=== PATIENT | female | born 1940 | race Caucasian/White ===

== ENCOUNTER 2017-06-29 14:15 | Inpatient (IN) | payer MEDICARE, MEDICAID ==
[2017-06-29 14:50] LABS: % BASOPHILS 0.6 % (0.0-2.0); % EOSINOPHILS 5.3 % (0.0-5.0); % LYMPHOCYTES 28.2 % (20.0-50.0); % MONOCYTES 10.4 % (2.0-10.0); % NEUTROPHILS 55.5 % (40.0-80.0); EOSINOPHILE ABSOLUTE 0.3 Th/cmm (0.1-0.4); HEMATOCRIT 35.2 % (41.0-60); HEMOGLOBIN 11.7 gm/dL (12-16); LYMPHOCYTE ABSOLUTE 1.6 Th/cmm (1.5-3.0); MEAN CELL VOLUME 92.7 fl (81-100); MEAN CORPUSCULAR HEMOGLOBIN 30.8 pg (27.0-31.0); MEAN CORPUSCULAR HGB CONC 33.2 pg (28.0-36.0); MEAN PLATELET VOLUME 8.1 fl; MONOCYTE ABSOLUTE 0.6 Th/cmm (0.3-1.0); NEUTROPHILE ABSOLUTE 3.1 Th/cmm (1.8-8.0); PLATELET COUNT 178 Th/cmm (150-400); RED CELL DISTRIBUTION WIDTH 14.7 % (11.5-20.0); WHITE BLOOD COUNT 5.6 Th/cmm (4.8-10.8)
[2017-06-29 15:06] LABS: ALB/GLOB RATIO 0.7 (1.0-1.8); ALBUMIN 3.2 gm/dL (3.7-5.3); ALKALINE PHOSPHATASE 202 U/L (34-104); ANION GAP 9.9 (7.0-16.0); BILIRUBIN,TOTAL 0.5 mg/dL (0.3-1.0); BUN - UREA NITROGEN 23 mg/dL (7-25); CALCIUM SERUM 9.1 mg/dL (8.6-10.3); CHLORIDE 101 mEq/L (98-107); CHOLESTEROL 140 mg/dL (<200); CREATININE - SERUM 1.1 mg/dL (0.6-1.2); GLUCOSE 171 mg/dL (70-105); HDL -HIGH DENSITY LIPOPROTEIN 39 mg/dL (23-92); MAGNESIUM 2.2 mg/dL (1.9-2.7); PHOSPHOROUS 4.1 mg/dL (2.5-5.0); POTASSIUM SERUM 3.9 mEq/L (3.5-5.1); SGOT 54 U/L (13-39); SGPT/ALT 30 U/L (7-52); SODIUM SERUM 135 mEq/L (136-145); TOTAL PROTEIN,SERUM 7.9 gm/dL (6.0-8.3); TRIGLYCERIDES 185 mg/dL (<150)
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
[2017-06-29] MEDS ORDERED: Maalox 30 mL Cup PO PRN ×2 (19:38→19:52)
[2017-06-29] MEDS ORDERED: Ipratropium Neb 0.5 mg/2.5 mL UD HHN PRN (19:52)
[2017-06-29] MEDS ORDERED: Budesonide 0.5 Mg/2 mL Ud HHN PRN (19:52)
[2017-06-29] MEDS ORDERED: GLUCAGON HCl 1 MG KIT IM PRN (20:30)
[2017-06-29] MEDS: Ferrous Sulfate 325 MG TAB PO SCH (22:00)
[2017-06-29 23:24] VITALS: BP 155/72
[2017-06-30] MEDS: Lactulose 10 Gm/15 mL 30mL UDC PO SCH ×5 (00:30→17:06)
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
[2017-06-30] MEDS: INSULIN ASPART SLIDING SCALE 100 UNITS/ML UNIT SUBQ SCH ×2 (06:47→16:33)
--- NOTE | 2017-06-30 07:44 | Diagnostic Imaging Report ---
CHEST X-RAY: AP view INDICATION: Pneumonia COMPARISON: 12/20/2015 FINDINGS: Low lung lungs are seen with bibasal atelectatic changes. No focal consolidation or effusions. Cardiomegaly is noted with atherosclerosis. Degenerative changes of the spine and shoulders are noted. IMPRESSION: Low lung volumes and bibasal atelectatic changes. No focal consolidation identified. Cardiomegaly and atherosclerotic vascular disease.
[2017-06-30] MEDS ORDERED: Non-Formulary Item 1 EA (Potassium Chloride [Potassium Chloride] 1 CAP) PO SCH (09:00)
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
[2017-06-30] MEDS: Ferrous Sulfate 325 MG TAB PO SCH ×3 (10:00→21:36)
[2017-06-30] MEDS: Multivitamin Tab PO SCH (10:00)
[2017-06-30] MEDS: Potassium Chloride 10 mEq ER Tab PO SCH (10:00)
[2017-06-30] MEDS: Pantoprazole 40 mg EC Tab PO SCH (10:00)
--- NOTE | 2017-06-30 16:21 | Transfer Summary ---
DATE OF TRANSFER: 06/29/2017 ADDENDUM The patient, who is here for medical clearance. The patient will be going to the psych floor. The patient was examined, the patient was medically clear from examination point of view. The patient has a lab workup done. White count was 5.6, hemoglobin 11.7, hematocrit 35.2, platelet count was 178,000. Neutrophils is 55.5, lymphocytes 28.2, monocytes 10.4, eosinophil 5.3. Electrolytes: Sodium 135, potassium 3.9, chloride 101, carbon dioxide 28, BUN is 23, creatinine is 1.1. Glucose is 171, it is a random glucose. Magnesium is 2.2, phosphorus 4.1, AST is 54, ALT is 30, alkaline phosphatase is 202. Beta natriuretic peptide, BNP is 171. No signs of heart failure. Total protein is 7.9, albumin 3.2, globulin of 4.7. HDL is 39. All the lab workup are normal. The patient is medically cleared to go to the psychiatric floor. JOB# [id number]
--- NOTE | 2017-07-01 04:48 | Progress Notes ---
DATE: 06/30/2017 SUBJECTIVE: Staff was spoken to. The patient is interviewed. Mood is noted to be irritable. Affect is constricted. The patient is isolative and withdrawn. Insight and judgment at this time are noted to be still impaired. Impulse control is noted to be limited. No side effects to the medications are noted. Participation in the groups are noted to be very minimal. The patient gets easily irritable and angry mainly towards the end of the day. ASSESSMENT: The patient is still cognitively impaired and getting agitated. PLAN: To continue the patient with supportive therapy, and encouraged the patient to verbalize the concerns rather than to act out. JOB# [id number]
[2017-07-01] MEDS: Lactulose 10 Gm/15 mL 30mL UDC PO SCH ×3 (06:44→17:37)
[2017-07-01] MEDS: INSULIN ASPART SLIDING SCALE 100 UNITS/ML UNIT SUBQ SCH ×2 (06:45→16:57)
[2017-07-01] MEDS: Ferrous Sulfate 325 MG TAB PO SCH ×3 (08:43→20:58)
[2017-07-01] MEDS: Pantoprazole 40 mg EC Tab PO SCH (08:45)
[2017-07-01] MEDS: Multivitamin Tab PO SCH (08:45)
[2017-07-01] MEDS: Potassium Chloride 10 mEq ER Tab PO SCH (08:46)
--- NOTE | 2017-07-01 09:33 | General Progress Note ---
Subjective - Review of Systems Service Date: 07/01/17 Subjective: I want go home Objective - Results Result Diagrams: 06/29/17 14:40 06/29/17 14:40 Recent Labs: Laboratory Last Values WBC 5.6 Th/cmm (4.8-10.8) 06/29/17 14:40 RBC 3.80 Mil/cmm (3.80-5.20) 06/29/17 14:40 Hgb 11.7 gm/dL (12-16) L 06/29/17 14:40 Hct 35.2 % (41.0-60) L 06/29/17 14:40 MCV 92.7 fl (81-100) 06/29/17 14:40 MCH 30.8 pg (27.0-31.0) 06/29/17 14:40 MCHC Differential 33.2 pg (28.0-36.0) 06/29/17 14:40 RDW 14.7 % (11.5-20.0) 06/29/17 14:40 Plt Count 178 Th/cmm (150-400) 06/29/17 14:40 MPV 8.1 fl 06/29/17 14:40 Neutrophils % 55.5 % (40.0-80.0) 06/29/17 14:40 Lymphocytes % 28.2 % (20.0-50.0) 06/29/17 14:40 Monocytes % 10.4 % (2.0-10.0) H 06/29/17 14:40 Eosinophils % 5.3 % (0.0-5.0) H 06/29/17 14:40 Basophils % 0.6 % (0.0-2.0) 06/29/17 14:40 Sodium 135 mEq/L (136-145) L 06/29/17 14:40 Potassium 3.9 mEq/L (3.5-5.1) 06/29/17 14:40 Chloride 101 mEq/L (98-107) 06/29/17 14:40 Carbon Dioxide 28.0 mEq/L (21.0-31.0) 06/29/17 14:40 Anion Gap 9.9 (7.0-16.0) 06/29/17 14:40 BUN 23 mg/dL (7-25) 06/29/17 14:40 Creatinine 1.1 mg/dL (0.6-1.2) 06/29/17 14:40 Est GFR ( Amer) TNP 06/29/17 14:40 Est GFR (Non-Af Amer) TNP 06/29/17 14:40 BUN/Creatinine Ratio 20.9 06/29/17 14:40 Glucose 171 mg/dL (70-105) H 06/29/17 14:40 Calcium 9.1 mg/dL (8.6-10.3) 06/29/17 14:40 Phosphorus 4.1 mg/dL (2.5-5.0) 06/29/17 14:40 Magnesium 2.2 mg/dL (1.9-2.7) 06/29/17 14:40 Total Bilirubin 0.5 mg/dL (0.3-1.0) 06/29/17 14:40 AST 54 U/L (13-39) H 06/29/17 14:40 ALT 30 U/L (7-52) 06/29/17 14:40 Alkaline Phosphatase 202 U/L (34-104) H 06/29/17 14:40 Troponin I 0.02 ng/mL (0.01-0.05) 06/29/17 14:40 B-Natriuretic Peptide 171.0 pg/mL (5.0-100.0) H 06/29/17 14:40 Total Protein 7.9 gm/dL (6.0-8.3) 06/29/17 14:40 Albumin 3.2 gm/dL (3.7-5.3) L 06/29/17 14:40 Globulin 4.7 gm/dL 06/29/17 14:40 Albumin/Globulin Ratio 0.7 (1.0-1.8) L 06/29/17 14:40 Triglycerides 185 mg/dL (<150) H 06/29/17 14:40 Cholesterol 140 mg/dL (<200) 06/29/17 14:40 LDL Cholesterol Direct 79 mg/dL (75-193) 06/29/17 14:40 HDL Cholesterol 39 mg/dL (23-92) 06/29/17 14:40 - Physical Exam Vitals and I&O: Vital Signs Temp 98.6 F 06/30/17 20:00 Pulse 75 07/01/17 08:45 Resp 18 07/01/17 07:15 BP 150/68 07/01/17 08:45 Pulse Ox 95 07/01/17 07:15 Intake & Output 06/30/17 07/01/17 07/01/17 18:59 06:59 18:59 Intake Total 420 Balance 420 Intake: Oral 420 Other: # Voids 1 Active Medications: Current Medications Acetaminophen (Tylenol) 650 mg PO Q4HR PRN PRN Reason: FEVER >101; MILD PAIN Stop: 08/28/17 19:51 Al Hydrox/Mg Hydrox/Simethicone (Maalox) 30 ml PO Q4HR PRN PRN Reason: GI DISTRESS Stop: 08/28/17 19:51 Ascorbic Acid (Vitamin C) 500 mg PO DAILY MARINO Stop: 08/29/17 08:59 Last Admin: 07/01/17 08:42 Dose: 500 mg Aspirin (Ecotrin) 81 mg PO DAILY MARINO Stop: 08/29/17 08:59 Last Admin: 07/01/17 08:43 Dose: 81 mg Budesonide (Pulmicort) 0.5 mg HHN BID PRN PRN Reason: Wheezing Stop: 08/28/17 19:51 Donepezil HCl (Aricept) 5 mg PO HS MARINO Stop: 08/28/17 20:59 Last Admin: 06/30/17 21:35 Dose: 5 mg Ferrous Sulfate (Iron) 325 mg PO TID MARINO Stop: 08/28/17 20:59 Last Admin: 07/01/17 08:43 Dose: 325 mg Furosemide (Lasix) 40 mg PO BID MARINO Stop: 08/29/17 08:59 Last Admin: 07/01/17 08:43 Dose: 40 mg Glipizide (Glucotrol) 5 mg PO DAILY MARINO Stop: 08/29/17 08:59 Last Admin: 07/01/17 08:44 Dose: 5 mg Glucagon (Glucagen) 1 mg IM PRN PRN PRN Reason: BLOOD SUGAR < 60 Insulin Aspart (Novolog Insulin Sliding Scale) 0 units SUBQ BIDAC MARINO PRN Reason: Protocol Stop: 08/29/17 07:29 Last Admin: 07/01/17 06:45 Dose: Not Given Ipratropium Freeman (Atrovent Neb 0.5mg/2.5ml) 0.5 mg HHN BID PRN PRN Reason: congestion Stop: 08/28/17 19:51 Lactulose (Cephulac) 20 gm PO Q6HR MARINO Stop: 08/29/17 00:00 Last Admin: 07/01/17 06:44 Dose: Not Given Lorazepam (Ativan) 0.5 mg PO Q4HR PRN; Protocol PRN Reason: Anxiety Stop: 07/29/17 19:37 Metoprolol Tartrate (Lopressor) 25 mg PO TID MARINO Stop: 08/28/17 20:59 Last Admin: 07/01/17 08:45 Dose: 25 mg Multivitamins/Vitamin C (Theragran) 1 tab PO DAILY MARINO Stop: 08/29/17 08:59 Last Admin: 07/01/17 08:45 Dose: 1 tab Nitroglycerin (Nitrostat) 0.4 mg SL Q5MIN PRN PRN Reason: Chest Pain Stop: 08/28/17 19:51 Pantoprazole Sodium (Protonix) 40 mg PO DAILY MARION Stop: 08/29/17 08:59 Last Admin: 07/01/17 08:45 Dose: 40 mg Potassium Chloride (Klor-Con) 10 meq PO DAILY MARINO Stop: 08/29/17 08:59 Last Admin: 07/01/17 08:46 Dose: 10 meq Quetiapine Fumarate (Seroquel) 25 mg PO BID MARINO PRN Reason: Protocol Stop: 08/29/17 08:59 Last Admin: 07/01/17 08:46 Dose: 25 mg Quetiapine Fumarate (Seroquel) 100 mg PO HS MARINO PRN Reason: Protocol Stop: 08/28/17 20:59 Last Admin: 06/30/17 21:36 Dose: 100 mg Tramadol HCl (Ultram) 50 mg PO Q4H PRN PRN Reason: Pain (Moderate) Stop: 08/28/17 19:51 Zolpidem Tartrate (Ambien) 5 mg PO HS PRN PRN Reason: Insomnia Stop: 08/28/17 19:37 General: Alert, Other (Confused) HEENT: Atraumatic Neck: Supple Cardiovascular: Regular rate Lungs: Clear to auscultation Abdomen: Bowel sounds, Soft Extremities: Other (No edema) Neurological: Other (Non ambulatory) Skin: Other (Warm and dry) Psych/Mental Status: Other (Confused, not oriented) Assessment/Plan - Assessment Assessment: Patient is awake, alert, not oriented. Dx: Increased in agitation, CHF, CAD, DM , HTN, Cirrhosis, COPD, Schizophrenia. - Plan Plan: Patient under Psychiatric care, continue with SNF meds. Ammonia level is requested. Will continue to monitor. Nutritional Asmnt/Malnutr-PDOC - Dietary Evaluation Malnutrition Findings (Please click <Entered> for more info): Nutritional Asmnt/Malnutrition Start: 06/30/17 14: 14 Text: Status: Complete Freq: Document 06/30/17 14:14 [email or web address] (Rec: 06/30/17 14:26 HEN [email or web address]) Nutritional Asmnt/Malnutrition Patient General Information Nutritional Screening High Risk Diagnosis dementia Pertinent Medical Hx/Surgical Hx CAD, CHF, HTN, COPD, dementia, psychosis, schizophrenia, weakness, DM, psoriasis Subjective Information Consult received for Chavo score 12. Pt seen sitting up in bed at time of visit, lunch tray on table. Pt is Armenian speaking. Per INSURANCE SPECIAL AGENT, pt does not like the food at lunch. Pt ate well at breakfast this morning. Pt is confused, not appropriate for nutrition education at this time. Current Diet Order/ Nutrition Support CCHO YAHAIRA Pertinent Medications vit C, Iron, lasix, glucotrol, novolog, cephulac, theragran, protonix, kcl, serqoeul Pertinent Labs 06/29 na 135, glucose 171 Nutritional Hx/Data Height 1.65 m Height (Calculated Centimeters) 165.1 Current Weight (lbs) 89.811 kg Weight (Calculated Kilograms) 89.8 Weight (Calculated Grams) 71986.3 [place] Body Weight 125 % [place] Body Weight 158 Body Mass Index (BMI) 32.9 Weight Status Approriate GI Symptoms GI Symptoms None Last BM not indicate Difficult in: None Skin Integrity/Comment: Chavo 12 Scar tissue with dark discoloration to right distal anterior gregorio, chronic wound with dry black scab to right distal lateral lower extremity per wound care note Estimated Nutritional Goals BEE in Kcals: Adj wt of IBW Calories/Kcals/Kg 25-30 Kcals Calculated 7906-6018 Protein: Adj wt of IBW Protein g/k-1.2 Protein Calculated 65-78 Fluid: ml 1625-1950ml (1ml/kcal) Nutritional Problem 1. Problem Problem altered nutrition related labs Etiology Hx of DM Signs/Symptoms: glucose 171 Malnutrition Alert Protein-Calorie Malnutrition N/A Is there a minimum of two criteria No selected? Query Text:Check all the applicable criteria. A minimum of two criteria are recommended for diagnosis of either severe or non-severe malnutrition. Intervention/Recommendation Comments 1. Continue with YAHAIRA CCHO diet as ordered. 2. Monitor PO intake, wt, labs and skin integrity 3. F/U as moderate risk in 3-5 days, 07/03-07/05, PO check Expected Outcomes/Goals Expected Outcomes/Goals 1. PO intake to meet at least 75% of nutritional needs. 2. Wt stability, skin to remain intact, labs to approach WNL.
[2017-07-01] MEDS ORDERED: Haloperidol Lactate 5 mg/mL 1mL Vial ONE (15:42)
[2017-07-01] MEDS ORDERED: Haloperidol Lactate 5 mg/mL 1mL Vial IM ONE (15:44)
--- NOTE | 2017-07-01 19:10 | Consultation ---
DATE OF CONSULTATION: 06/30/2017 REFERRING PHYSICIAN: Ted Zavala MD. TYPE OF CONSULTATION: Psychology. HISTORY OF PRESENT ILLNESS: The patient is a 76-year-old female. The patient is a resident of [facility]. The patient has been seen by this tag writer in previous hospitalizations here. The following is by record review and by patient's self report. The patient is admitted due to increased agitation and psychosis. According to record review staff at the patient's facility report that she had become easily agitated as well as episodes of screaming and striking out at staff members during caregiving. The patient was unable to be contained and admitted for stabilization. The patient denied any suicidal ideation, plan or intention. During the clinical interview, the patient is guarded and suspicious. PAST MEDICAL HISTORY: Please see history and physical by Dr. Gage. PAST PSYCHIATRIC HISTORY: The patient has multiple previous hospitalizations here on the geropsychiatric unit. The patient is under the care of both a psychiatrist and psychologist at her senior living facility. 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 SUBSTANCE ABUSE HISTORY: None. PSYCHOSOCIAL HISTORY: The patient did not answer questions about occupational history or educational history or jewish affiliation. The patient did not answer questions about physical or sexual abuse history or about any legal issues at the time of this interview. MENTAL STATUS EXAMINATION: The patient appears to be stated age. The patient's attitude is guarded. Eye contact is poor. Mood is irritable and angry. Affect is constricted. Thought process is confused. The patient denied any auditory or visual hallucinations. The patient is exhibiting paranoid ideation and delusion. The patient's behavior is irritable and angry and difficult to redirect. Impulse control is inadequate. Concentration is poor. The patient was unable to sustain focus and attention on the clinical interview questions. Sensorium is alert and oriented to place and self only. Patient did not participate in the memory assessment. The patient has no insight into her illness. The patient did not participate in the interpretation of proverbs. Insight is impaired. Judgment is impaired. DIAGNOSTIC IMPRESSION: AXIS I: 1. Psychotic disorder, not otherwise specified. 2. Dementia with behavioral disturbance. AXIS II: Deferred. AXIS III: Please see history and physical by Dr. Gage. TREATMENT PLAN: The patient has been seen by Dr. Guntupalli for psychiatric evaluation and for the management of the patient's psychotropic medications. We will provide supportive psychotherapy to include a simple de-escalation skill as well as limit setting with respect to the patient's striking out behavior at staff. We will provide reality orientation, reality differentiation and reality integration. We will provide motivational enhancement for the patient to verbalize her concerns versus acting out. We will provide motivational enhancement also for the patient to become compliant and stay compliant with all aspects of her care and treatment plan. We will provide coping strategies for phase of life issues as well. Thank you, Dr. Zavala, for this consult and the opportunity to participate with you in this patient's care. JOB# [id number] GISELL
--- NOTE | 2017-07-02 02:55 | Progress Notes ---
DATE: 07/01/2017 SUBJECTIVE: Staff was spoken to. The patient is interviewed. Mood is noted to be irritable. Affect is constricted. Insight and judgment at this time are noted still impaired. Impulse control seems to be poor. Coping skills are noted to be very poor. The patient has been very irritable and angry. The patient has to be given a dose of Haldol this morning. The patient is currently on 25 mg of the Seroquel twice a day and 100 mg at bedtime. The patient has been able to tolerate the medications. No side effects to medications are noted. ASSESSMENT: The patient is still psychotic. PLAN: To continue the patient with the supportive therapy and I encouraged the patient to verbalize the concerns rather than to act out. JOB# [id number]
[2017-07-02] MEDS: Lactulose 10 Gm/15 mL 30mL UDC PO SCH ×6 (06:35→23:43)
[2017-07-02] MEDS: INSULIN ASPART SLIDING SCALE 100 UNITS/ML UNIT SUBQ SCH ×2 (06:35→17:17)
[2017-07-02] MEDS: Potassium Chloride 10 mEq ER Tab PO SCH (09:16)
[2017-07-02] MEDS: Ferrous Sulfate 325 MG TAB PO SCH ×3 (09:18→20:52)
--- NOTE | 2017-07-02 09:53 | General Progress Note ---
Subjective - Review of Systems Service Date: 07/02/17 Subjective: I want go home Objective - Results Result Diagrams: 06/29/17 14:40 06/29/17 14:40 Recent Labs: Laboratory Last Values WBC 5.6 Th/cmm (4.8-10.8) 06/29/17 14:40 RBC 3.80 Mil/cmm (3.80-5.20) 06/29/17 14:40 Hgb 11.7 gm/dL (12-16) L 06/29/17 14:40 Hct 35.2 % (41.0-60) L 06/29/17 14:40 MCV 92.7 fl (81-100) 06/29/17 14:40 MCH 30.8 pg (27.0-31.0) 06/29/17 14:40 MCHC Differential 33.2 pg (28.0-36.0) 06/29/17 14:40 RDW 14.7 % (11.5-20.0) 06/29/17 14:40 Plt Count 178 Th/cmm (150-400) 06/29/17 14:40 MPV 8.1 fl 06/29/17 14:40 Neutrophils % 55.5 % (40.0-80.0) 06/29/17 14:40 Lymphocytes % 28.2 % (20.0-50.0) 06/29/17 14:40 Monocytes % 10.4 % (2.0-10.0) H 06/29/17 14:40 Eosinophils % 5.3 % (0.0-5.0) H 06/29/17 14:40 Basophils % 0.6 % (0.0-2.0) 06/29/17 14:40 Sodium 135 mEq/L (136-145) L 06/29/17 14:40 Potassium 3.9 mEq/L (3.5-5.1) 06/29/17 14:40 Chloride 101 mEq/L (98-107) 06/29/17 14:40 Carbon Dioxide 28.0 mEq/L (21.0-31.0) 06/29/17 14:40 Anion Gap 9.9 (7.0-16.0) 06/29/17 14:40 BUN 23 mg/dL (7-25) 06/29/17 14:40 Creatinine 1.1 mg/dL (0.6-1.2) 06/29/17 14:40 Est GFR ( Amer) TNP 06/29/17 14:40 Est GFR (Non-Af Amer) TNP 06/29/17 14:40 BUN/Creatinine Ratio 20.9 06/29/17 14:40 Glucose 171 mg/dL (70-105) H 06/29/17 14:40 Calcium 9.1 mg/dL (8.6-10.3) 06/29/17 14:40 Phosphorus 4.1 mg/dL (2.5-5.0) 06/29/17 14:40 Magnesium 2.2 mg/dL (1.9-2.7) 06/29/17 14:40 Total Bilirubin 0.5 mg/dL (0.3-1.0) 06/29/17 14:40 AST 54 U/L (13-39) H 06/29/17 14:40 ALT 30 U/L (7-52) 06/29/17 14:40 Alkaline Phosphatase 202 U/L (34-104) H 06/29/17 14:40 Troponin I 0.02 ng/mL (0.01-0.05) 06/29/17 14:40 B-Natriuretic Peptide 171.0 pg/mL (5.0-100.0) H 06/29/17 14:40 Total Protein 7.9 gm/dL (6.0-8.3) 06/29/17 14:40 Albumin 3.2 gm/dL (3.7-5.3) L 06/29/17 14:40 Globulin 4.7 gm/dL 06/29/17 14:40 Albumin/Globulin Ratio 0.7 (1.0-1.8) L 06/29/17 14:40 Triglycerides 185 mg/dL (<150) H 06/29/17 14:40 Cholesterol 140 mg/dL (<200) 06/29/17 14:40 LDL Cholesterol Direct 79 mg/dL (75-193) 06/29/17 14:40 HDL Cholesterol 39 mg/dL (23-92) 06/29/17 14:40 - Physical Exam Vitals and I&O: Vital Signs Temp 97.9 F 07/02/17 05:12 Pulse 71 07/02/17 09:18 Resp 18 07/02/17 07:25 BP 123/82 07/02/17 09:19 Pulse Ox 94 07/02/17 07:25 Intake & Output 07/01/17 07/02/17 07/02/17 18:59 06:59 18:59 Intake Total 480 Balance 480 Intake: Oral 480 Other: # Voids 2 Active Medications: Current Medications Acetaminophen (Tylenol) 650 mg PO Q4HR PRN PRN Reason: FEVER >101; MILD PAIN Stop: 08/28/17 19:51 Al Hydrox/Mg Hydrox/Simethicone (Maalox) 30 ml PO Q4HR PRN PRN Reason: GI DISTRESS Stop: 08/28/17 19:51 Ascorbic Acid (Vitamin C) 500 mg PO DAILY MARINO Stop: 08/29/17 08:59 Last Admin: 07/02/17 09:15 Dose: 500 mg Aspirin (Ecotrin) 81 mg PO DAILY MARINO Stop: 08/29/17 08:59 Last Admin: 07/02/17 09:19 Dose: 81 mg Budesonide (Pulmicort) 0.5 mg HHN BID PRN PRN Reason: Wheezing Stop: 08/28/17 19:51 Donepezil HCl (Aricept) 5 mg PO HS MARINO Stop: 08/28/17 20:59 Last Admin: 07/01/17 20:58 Dose: 5 mg Ferrous Sulfate (Iron) 325 mg PO TID MARINO Stop: 08/28/17 20:59 Last Admin: 07/02/17 09:18 Dose: 325 mg Furosemide (Lasix) 40 mg PO BID MARINO Stop: 08/29/17 08:59 Last Admin: 07/02/17 09:19 Dose: 40 mg Glipizide (Glucotrol) 5 mg PO DAILY MARINO Stop: 08/29/17 08:59 Last Admin: 07/02/17 09:17 Dose: 5 mg Glucagon (Glucagen) 1 mg IM PRN PRN PRN Reason: BLOOD SUGAR < 60 Insulin Aspart (Novolog Insulin Sliding Scale) 0 units SUBQ BIDAC MARINO PRN Reason: Protocol Stop: 08/29/17 07:29 Last Admin: 07/02/17 06:35 Dose: Not Given Ipratropium [place] (Atrovent Neb 0.5mg/2.5ml) 0.5 mg HHN BID PRN PRN Reason: congestion Stop: 08/28/17 19:51 Lactulose (Cephulac) 20 gm PO Q6HR MARINO Stop: 08/29/17 00:00 Last Admin: 07/02/17 06:35 Dose: Not Given Lorazepam (Ativan) 0.5 mg PO Q4HR PRN; Protocol PRN Reason: Anxiety Stop: 07/29/17 19:37 Last Admin: 07/01/17 15:23 Dose: 0.5 mg Metoprolol Tartrate (Lopressor) 25 mg PO TID MARINO Stop: 08/28/17 20:59 Last Admin: 07/02/17 09:18 Dose: 25 mg Multivitamins/Vitamin C (Theragran) 1 tab PO DAILY MARINO Stop: 08/29/17 08:59 Last Admin: 07/01/17 08:45 Dose: 1 tab Nitroglycerin (Nitrostat) 0.4 mg SL Q5MIN PRN PRN Reason: Chest Pain Stop: 08/28/17 19:51 Pantoprazole Sodium (Protonix) 40 mg PO DAILY MARINO Stop: 08/29/17 08:59 Last Admin: 07/01/17 08:45 Dose: 40 mg Potassium Chloride (Klor-Con) 10 meq PO DAILY MARINO Stop: 08/29/17 08:59 Last Admin: 07/02/17 09:16 Dose: 10 meq Quetiapine Fumarate (Seroquel) 25 mg PO BID MARINO PRN Reason: Protocol Stop: 08/29/17 08:59 Last Admin: 07/01/17 17:37 Dose: 25 mg Quetiapine Fumarate (Seroquel) 100 mg PO HS MARINO PRN Reason: Protocol Stop: 08/28/17 20:59 Last Admin: 07/01/17 20:49 Dose: 100 mg Tramadol HCl (Ultram) 50 mg PO Q4H PRN PRN Reason: Pain (Moderate) Stop: 08/28/17 19:51 Zolpidem Tartrate (Ambien) 5 mg PO HS PRN PRN Reason: Insomnia Stop: 08/28/17 19:37 Last Admin: 07/01/17 20:58 Dose: 5 mg General: Alert, Other (Confused) HEENT: Atraumatic Neck: Supple Cardiovascular: Regular rate Lungs: Clear to auscultation Abdomen: Bowel sounds, Soft Extremities: Other (No edema) Neurological: Other (Non ambulatory) Skin: Other (Warm and dry) Psych/Mental Status: Other (Confused, not oriented) Assessment/Plan - Assessment Assessment: Patient is awake, alert, not oriented. Dx: Increased in agitation, CHF, CAD, DM , HTN, Cirrhosis, COPD, Schizophrenia. - Plan Plan: Patient under Psychiatric care, continue with SNF meds. Ammonia level is requested. Will continue to monitor. Nutritional Asmnt/Malnutr-PDOC - Dietary Evaluation Malnutrition Findings (Please click <Entered> for more info): Nutritional Asmnt/Malnutrition Start: 06/30/17 14: 14 Text: Status: Complete Freq: Document 06/30/17 14:14 MILLI (Rec: 06/30/17 14:26 MILLI [email or web address]) Nutritional Asmnt/Malnutrition Patient General Information Nutritional Screening High Risk Diagnosis dementia Pertinent Medical Hx/Surgical Hx CAD, CHF, HTN, COPD, dementia, psychosis, schizophrenia, weakness, DM, psoriasis Subjective Information Consult received for Chavo score 12. Pt seen sitting up in bed at time of visit, lunch tray on table. Pt is Estonian speaking. Per LICENSED LOAN OFFICER, pt does not like the food at lunch. Pt ate well at breakfast this morning. Pt is confused, not appropriate for nutrition education at this time. Current Diet Order/ Nutrition Support CCHO YAHAIRA Pertinent Medications vit C, Iron, lasix, glucotrol, novolog, cephulac, theragran, protonix, kcl, serqoeul Pertinent Labs 06/29 na 135, glucose 171 Nutritional Hx/Data Height 1.65 m Height (Calculated Centimeters) 165.1 Current Weight (lbs) 89.811 kg Weight (Calculated Kilograms) 89.8 Weight (Calculated Grams) 51763.3 [place] Body Weight 125 % [place] Body Weight 158 Body Mass Index (BMI) 32.9 Weight Status Approriate GI Symptoms GI Symptoms None Last BM not indicate Difficult in: None Skin Integrity/Comment: Chavo 12 Scar tissue with dark discoloration to right distal anterior gregorio, chronic wound with dry black scab to right distal lateral lower extremity per wound care note Estimated Nutritional Goals BEE in Kcals: Adj wt of IBW Calories/Kcals/Kg 25-30 Kcals Calculated 4445-7496 Protein: Adj wt of IBW Protein g/k-1.2 Protein Calculated 65-78 Fluid: ml 1625-1950ml (1ml/kcal) Nutritional Problem 1. Problem Problem altered nutrition related labs Etiology Hx of DM Signs/Symptoms: glucose 171 Malnutrition Alert Protein-Calorie Malnutrition N/A Is there a minimum of two criteria No selected? Query Text:Check all the applicable criteria. A minimum of two criteria are recommended for diagnosis of either severe or non-severe malnutrition. Intervention/Recommendation Comments 1. Continue with YAHAIRA CCHO diet as ordered. 2. Monitor PO intake, wt, labs and skin integrity 3. F/U as moderate risk in 3-5 days, 07/03-07/05, PO check Expected Outcomes/Goals Expected Outcomes/Goals 1. PO intake to meet at least 75% of nutritional needs. 2. Wt stability, skin to remain intact, labs to approach WNL.
[2017-07-02] MEDS: Pantoprazole 40 mg EC Tab PO SCH (11:10)
[2017-07-02] MEDS: Multivitamin Tab PO SCH (11:10)
[2017-07-02 19:01] LABS: A1C % 6.8 % (4.0-6.0)
--- NOTE | 2017-07-03 00:39 | Progress Notes ---
DATE: 07/02/2017 PSYCHIATRIC PROGRESS NOTE Staff was spoken to. The patient is interviewed. Mood is noted to be irritable. Affect is constricted. Insight and judgment are noted to be still impaired. The patient is screaming and yelling. The patient's coping skills are noted to be very poor. No side effects to the medications are noted. Continues to be paranoid and the patient has short-term as well as long-term memory deficits. The patient is currently on the Seroquel 25 mg twice a day and 100 mg at bedtime and has been able to tolerate the medications. No side effects to the medications are noted. ASSESSMENT: The patient is still grossly psychotic and impulsive. PLAN: To continue the patient with the current medications and follow up with the supportive therapy. [facility]# [id number]
[2017-07-03] MEDS: Lactulose 10 Gm/15 mL 30mL UDC PO SCH ×4 (06:20→23:45)
[2017-07-03] MEDS: INSULIN ASPART SLIDING SCALE 100 UNITS/ML UNIT SUBQ SCH ×2 (06:33→16:40)
[2017-07-03] MEDS: Pantoprazole 40 mg EC Tab PO SCH (09:53)
[2017-07-03] MEDS: Ferrous Sulfate 325 MG TAB PO SCH ×3 (09:53→20:43)
[2017-07-03] MEDS: Potassium Chloride 10 mEq ER Tab PO SCH (09:53)
[2017-07-03] MEDS: Multivitamin Tab PO SCH (09:53)
--- NOTE | 2017-07-04 00:03 | Progress Notes ---
DATE: 07/03/2017 PSYCHIATRIC PROGRESS NOTE SUBJECTIVE: Staff was spoken to. The patient is interviewed. Mood is noted to be irritable. Affect is constricted. Insight and judgment at this time are noted to be still impaired. Impulse control is noted to be limited. The patient is currently on 25 mg twice a day of the Seroquel and 100 mg at bedtime, has been able to tolerate the medication. The aggressive behavior seems to be coming under control today. No side effects to the medications are noted. ASSESSMENT: The patient is still psychotic, confused, and demented. PLAN: To continue the patient with the supportive therapy and followup. JOB# [id number]
[2017-07-04] MEDS: Lactulose 10 Gm/15 mL 30mL UDC PO SCH ×2 (06:31→13:04)
[2017-07-04] MEDS: INSULIN ASPART SLIDING SCALE 100 UNITS/ML UNIT SUBQ SCH ×2 (06:32→16:11)
[2017-07-04] MEDS: Potassium Chloride 10 mEq ER Tab PO SCH (10:00)
[2017-07-04] MEDS: Multivitamin Tab PO SCH (10:00)
[2017-07-04] MEDS: Ferrous Sulfate 325 MG TAB PO SCH ×3 (10:01→22:21)
[2017-07-04] MEDS: Pantoprazole 40 mg EC Tab PO SCH (10:01)
--- NOTE | 2017-07-04 22:14 | Progress Notes ---
DATE: 07/04/2017 PSYCHIATRIC PROGRESS NOTE SUBJECTIVE: Staff was spoken to. The patient is interviewed. Mood is noted to be irritable. Affect is constricted. Insight and judgment at this time are noted to be still impaired. Impulse control seems to be limited. Coping skills are noted to be limited. The patient has been less irritable today compared to yesterday and the patient has been able to tolerate the medications. Sleep is noted to be improving. Appetite is also noted to be fair. The patient is currently on the Seroquel at 25 mg b.i.d. and 100 mg at bedtime. The patient has been able to tolerate. No major side effects to the medications are noted. ASSESSMENT: The patient is still impulsive and paranoid. PLAN: To continue the patient with the supportive therapy and followup. [facility]# [id number]
[2017-07-05] MEDS: Lactulose 10 Gm/15 mL 30mL UDC PO SCH ×2 (00:30→05:30)
[2017-07-05] MEDS: INSULIN ASPART SLIDING SCALE 100 UNITS/ML UNIT SUBQ SCH (06:36)
--- NOTE | 2017-07-05 09:01 | General Progress Note ---
Subjective - Review of Systems Service Date: 07/05/17 Subjective: I want go home Objective - Results Result Diagrams: 06/29/17 14:40 06/29/17 14:40 Recent Labs: Laboratory Last Values WBC 5.6 Th/cmm (4.8-10.8) 06/29/17 14:40 RBC 3.80 Mil/cmm (3.80-5.20) 06/29/17 14:40 Hgb 11.7 gm/dL (12-16) L 06/29/17 14:40 Hct 35.2 % (41.0-60) L 06/29/17 14:40 MCV 92.7 fl (81-100) 06/29/17 14:40 MCH 30.8 pg (27.0-31.0) 06/29/17 14:40 MCHC Differential 33.2 pg (28.0-36.0) 06/29/17 14:40 RDW 14.7 % (11.5-20.0) 06/29/17 14:40 Plt Count 178 Th/cmm (150-400) 06/29/17 14:40 MPV 8.1 fl 06/29/17 14:40 Neutrophils % 55.5 % (40.0-80.0) 06/29/17 14:40 Lymphocytes % 28.2 % (20.0-50.0) 06/29/17 14:40 Monocytes % 10.4 % (2.0-10.0) H 06/29/17 14:40 Eosinophils % 5.3 % (0.0-5.0) H 06/29/17 14:40 Basophils % 0.6 % (0.0-2.0) 06/29/17 14:40 Sodium 135 mEq/L (136-145) L 06/29/17 14:40 Potassium 3.9 mEq/L (3.5-5.1) 06/29/17 14:40 Chloride 101 mEq/L (98-107) 06/29/17 14:40 Carbon Dioxide 28.0 mEq/L (21.0-31.0) 06/29/17 14:40 Anion Gap 9.9 (7.0-16.0) 06/29/17 14:40 BUN 23 mg/dL (7-25) 06/29/17 14:40 Creatinine 1.1 mg/dL (0.6-1.2) 06/29/17 14:40 Est GFR ( Amer) TNP 06/29/17 14:40 Est GFR (Non-Af Amer) TNP 06/29/17 14:40 BUN/Creatinine Ratio 20.9 06/29/17 14:40 Glucose 171 mg/dL (70-105) H 06/29/17 14:40 Hemoglobin A1c % 6.8 % (4.0-6.0) H 07/02/17 10:20 Calcium 9.1 mg/dL (8.6-10.3) 06/29/17 14:40 Phosphorus 4.1 mg/dL (2.5-5.0) 06/29/17 14:40 Magnesium 2.2 mg/dL (1.9-2.7) 06/29/17 14:40 Total Bilirubin 0.5 mg/dL (0.3-1.0) 06/29/17 14:40 AST 54 U/L (13-39) H 06/29/17 14:40 ALT 30 U/L (7-52) 06/29/17 14:40 Alkaline Phosphatase 202 U/L (34-104) H 06/29/17 14:40 Ammonia 59 umol/L (16-53) H 07/02/17 10:20 Troponin I 0.02 ng/mL (0.01-0.05) 06/29/17 14:40 B-Natriuretic Peptide 171.0 pg/mL (5.0-100.0) H 06/29/17 14:40 Total Protein 7.9 gm/dL (6.0-8.3) 06/29/17 14:40 Albumin 3.2 gm/dL (3.7-5.3) L 06/29/17 14:40 Globulin 4.7 gm/dL 06/29/17 14:40 Albumin/Globulin Ratio 0.7 (1.0-1.8) L 06/29/17 14:40 Triglycerides 185 mg/dL (<150) H 06/29/17 14:40 Cholesterol 140 mg/dL (<200) 06/29/17 14:40 LDL Cholesterol Direct 79 mg/dL (75-193) 06/29/17 14:40 HDL Cholesterol 39 mg/dL (23-92) 06/29/17 14:40 - Physical Exam Vitals and I&O: Vital Signs Temp 98.0 F 07/05/17 05:43 Pulse 69 07/05/17 08:19 Resp 14 07/05/17 08:19 BP 126/72 07/05/17 05:43 Pulse Ox 94 07/05/17 08:19 Intake & Output 07/04/17 07/05/17 07/05/17 18:59 06:59 18:59 Intake Total 240 Balance 240 Intake: Oral 240 Other: # Voids 2 # Bowel Movements 0 Active Medications: Current Medications Acetaminophen (Tylenol) 650 mg PO Q4HR PRN PRN Reason: FEVER >101; MILD PAIN Stop: 08/28/17 19:51 Al Hydrox/Mg Hydrox/Simethicone (Maalox) 30 ml PO Q4HR PRN PRN Reason: GI DISTRESS Stop: 08/28/17 19:51 Ascorbic Acid (Vitamin C) 500 mg PO DAILY MARINO Stop: 08/29/17 08:59 Last Admin: 07/04/17 10:00 Dose: 500 mg Aspirin (Ecotrin) 81 mg PO DAILY MARINO Stop: 08/29/17 08:59 Last Admin: 07/04/17 10:01 Dose: 81 mg Budesonide (Pulmicort) 0.5 mg HHN BID PRN PRN Reason: Wheezing Stop: 08/28/17 19:51 Donepezil HCl (Aricept) 5 mg PO HS MARINO Stop: 08/28/17 20:59 Last Admin: 07/04/17 22:22 Dose: 5 mg Ferrous Sulfate (Iron) 325 mg PO TID MARINO Stop: 08/28/17 20:59 Last Admin: 07/04/17 22:21 Dose: 325 mg Furosemide (Lasix) 40 mg PO BID MARINO Stop: 08/29/17 08:59 Last Admin: 07/04/17 10:00 Dose: 40 mg Glipizide (Glucotrol) 5 mg PO DAILY MARINO Stop: 08/29/17 08:59 Last Admin: 07/04/17 10:02 Dose: 5 mg Glucagon (Glucagen) 1 mg IM PRN PRN PRN Reason: BLOOD SUGAR < 60 Insulin Aspart (Novolog Insulin Sliding Scale) 0 units SUBQ BIDAC MARINO PRN Reason: Protocol Stop: 08/29/17 07:29 Last Admin: 07/05/17 06:36 Dose: Not Given Ipratropium [place] (Atrovent Neb 0.5mg/2.5ml) 0.5 mg HHN BID PRN PRN Reason: congestion Stop: 08/28/17 19:51 Lactulose (Cephulac) 20 gm PO Q6HR MARINO Stop: 08/29/17 00:00 Last Admin: 07/05/17 05:30 Dose: 20 gm Lorazepam (Ativan) 0.5 mg PO Q4HR PRN; Protocol PRN Reason: Anxiety Stop: 07/29/17 19:37 Last Admin: 07/04/17 14:50 Dose: 0.5 mg Metoprolol Tartrate (Lopressor) 25 mg PO TID MARINO Stop: 08/28/17 20:59 Last Admin: 07/04/17 22:21 Dose: 25 mg Multivitamins/Vitamin C (Theragran) 1 tab PO DAILY MARINO Stop: 08/29/17 08:59 Last Admin: 07/04/17 10:00 Dose: 1 tab Nitroglycerin (Nitrostat) 0.4 mg SL Q5MIN PRN PRN Reason: Chest Pain Stop: 08/28/17 19:51 Pantoprazole Sodium (Protonix) 40 mg PO DAILY MARINO Stop: 08/29/17 08:59 Last Admin: 07/04/17 10:01 Dose: 40 mg Potassium Chloride (Klor-Con) 10 meq PO DAILY MARINO Stop: 08/29/17 08:59 Last Admin: 07/04/17 10:00 Dose: 10 meq Quetiapine Fumarate (Seroquel) 25 mg PO BID MARINO PRN Reason: Protocol Stop: 08/29/17 08:59 Last Admin: 07/04/17 10:00 Dose: 25 mg Quetiapine Fumarate (Seroquel) 100 mg PO HS MARINO PRN Reason: Protocol Stop: 08/28/17 20:59 Last Admin: 07/04/17 22:21 Dose: 100 mg Tramadol HCl (Ultram) 50 mg PO Q4H PRN PRN Reason: Pain (Moderate) Stop: 08/28/17 19:51 Zolpidem Tartrate (Ambien) 5 mg PO HS PRN PRN Reason: Insomnia Stop: 08/28/17 19:37 Last Admin: 07/03/17 20:45 Dose: 5 mg General: Alert, Other (Confused) HEENT: Atraumatic Neck: Supple Cardiovascular: Regular rate Lungs: Clear to auscultation Abdomen: Bowel sounds, Soft Extremities: Other (No edema) Neurological: Other (Non ambulatory) Skin: Other (Warm and dry) Psych/Mental Status: Other (Confused, not oriented) Assessment/Plan - Assessment Assessment: Patient is awake, alert, not oriented. Dx: Increased in agitation, CHF, CAD, DM , HTN, Cirrhosis, COPD, Schizophrenia. - Plan Plan: Patient under Psychiatric care, continue with SNF meds. Ammonia level is requested. Will continue to monitor. Nutritional Asmnt/Malnutr-PDOC - Dietary Evaluation Malnutrition Findings (Please click <Entered> for more info): Nutritional Asmnt/Malnutrition Start: 06/30/17 14: 14 Text: Status: Complete Freq: Document 06/30/17 14:14 [facility] (Rec: 06/30/17 14:26 HEN [email or web address]) Nutritional Asmnt/Malnutrition Patient General Information Nutritional Screening High Risk Diagnosis dementia Pertinent Medical Hx/Surgical Hx CAD, CHF, HTN, COPD, dementia, psychosis, schizophrenia, weakness, DM, psoriasis Subjective Information Consult received for Chavo score 12. Pt seen sitting up in bed at time of visit, lunch tray on table. Pt is Lao speaking. Per TREE FRUIT AND NUT FARMING SUPERVISOR, pt does not like the food at lunch. Pt ate well at breakfast this morning. Pt is confused, not appropriate for nutrition education at this time. Current Diet Order/ Nutrition Support CCHO YAHAIRA Pertinent Medications vit C, Iron, lasix, glucotrol, novolog, cephulac, theragran, protonix, kcl, serqoeul Pertinent Labs 06/29 na 135, glucose 171 Nutritional Hx/Data Height 1.65 m Height (Calculated Centimeters) 165.1 Current Weight (lbs) 89.811 kg Weight (Calculated Kilograms) 89.8 Weight (Calculated Grams) 38172.3 [place] Body Weight 125 % [place] Body Weight 158 Body Mass Index (BMI) 32.9 Weight Status Approriate GI Symptoms GI Symptoms None Last BM not indicate Difficult in: None Skin Integrity/Comment: Chavo 12 Scar tissue with dark discoloration to right distal anterior gregorio, chronic wound with dry black scab to right distal lateral lower extremity per wound care note Estimated Nutritional Goals BEE in Kcals: Adj wt of IBW Calories/Kcals/Kg 25-30 Kcals Calculated 0759-4474 Protein: Adj wt of IBW Protein g/k-1.2 Protein Calculated 65-78 Fluid: ml 1625-1950ml (1ml/kcal) Nutritional Problem 1. Problem Problem altered nutrition related labs Etiology Hx of DM Signs/Symptoms: glucose 171 Malnutrition Alert Protein-Calorie Malnutrition N/A Is there a minimum of two criteria No selected? Query Text:Check all the applicable criteria. A minimum of two criteria are recommended for diagnosis of either severe or non-severe malnutrition. Intervention/Recommendation Comments 1. Continue with YAHAIRA CCHO diet as ordered. 2. Monitor PO intake, wt, labs and skin integrity 3. F/U as moderate risk in 3-5 days, 07/03-07/05, PO check Expected Outcomes/Goals Expected Outcomes/Goals 1. PO intake to meet at least 75% of nutritional needs. 2. Wt stability, skin to remain intact, labs to approach WNL.
[2017-07-05] MEDS: Pantoprazole 40 mg EC Tab PO SCH (09:28)
[2017-07-05] MEDS: Ferrous Sulfate 325 MG TAB PO SCH (09:29)
[2017-07-05] MEDS: Potassium Chloride 10 mEq ER Tab PO SCH (09:29)
[2017-07-05] MEDS: Multivitamin Tab PO SCH (09:29)
--- NOTE | 2017-07-05 20:25 | Discharge Summary ---
DATE OF DISCHARGE: 07/05/2017 IDENTIFYING DATA: The patient is a 76-year-old woman, resident of [facility] in [place]. JUSTIFICATION OF HOSPITALIZATION: The patient is admitted for her acute psychosis and agitation. CHIEF COMPLAINT: "I do not know." DIAGNOSES AT THE TIME OF ADMISSION: AXIS I: 1: Psychotic disorder, not otherwise specified. 1b: Dementia and behavioral change secondary trait. AXIS II: None. AXIS III: As per Dr. Gage. HISTORY OF PRESENT ILLNESS: Please refer the 06/29/2017 dictation done by me. Physical examination at the time of admission was done by Dr. Rnajeet Gage and is noted to be significant for diabetes mellitus, hypertension, and arthritis. HOSPITAL COURSE AND RESPONSE TO TREATMENT: The patient's blood work has been reviewed by Dr. Gage. The patient has been closely monitored on the inpatient unit, provided with supportive psychotherapy. The patient has been placed on the Seroquel, which was given 25 mg twice a day and 100 mg at bedtime and the patient has been closely monitored. We encouraged to verbalize the concerns rather than to act out. The patient initially was okay, but at one time she was screaming and yelling and the patient has to be given a high dose of the Seroquel that is 100 mg at bedtime and the patient has been closely monitored for any adverse effects and the patient done fairly well and hence was discharged on 07/05/2017, with recommendation that she is going to be seeking treatment on an outpatient basis. MENTAL STATUS EXAMINATION: At the time of discharge, the patient's mood is noted to be anxious. Affect is appropriate. Not suicidal or homicidal. Insight and judgment are noted to be improving. Impulse control seems to be fair. Coping skills are noted fair. The patient has been able to verbalize the concerns rather than to act out. No side effects to the medications are noted. ASSESSMENT: The patient has diagnoses at the time of discharge: AXIS I: 1: Psychotic disorder, not otherwise specified. 1b: Dementia and behavioral change, secondary trait. AXIS II: None. AXIS III: Diabetes mellitus, hypertension, and obesity. AFTERCARE PLAN: The patient is discharged to [facility] to be followed up on an outpatient basis at [facility] by Dr. Malik. [facility]# [id number]
== END 2017-07-05 13:10 | DRG 884 ==
LOC: ER 14:15 → GERO2 16:58
PROVIDERS: ADMIT Psychiatry & Neurology Psychiatry; ATTEND Psychiatry & Neurology Psychiatry
DX: F03.91 Unspecified dementia, unspecified severity, with behavioral disturbance (principal); I11.0 Hypertensive heart disease with heart failure; F29 Unspecified psychosis not due to a substance or known physiological condition; I25.10 Atherosclerotic heart disease of native coronary artery without angina pectoris; I50.9 Heart failure, unspecified; J44.9 Chronic obstructive pulmonary disease, unspecified; E11.9 Type 2 diabetes mellitus without complications; K21.9 Gastro-esophageal reflux disease without esophagitis; D64.9 Anemia, unspecified; F41.1 Generalized anxiety disorder; F63.9 Impulse disorder, unspecified; K43.9 Ventral hernia without obstruction or gangrene; E66.9 Obesity, unspecified; Z79.4 Long term (current) use of insulin; Z68.32 Body mass index [BMI] 32.0-32.9, adult; K70.30 Alcoholic cirrhosis of liver without ascites; L40.9 Psoriasis, unspecified; S80.821A Blister (nonthermal), right lower leg, initial encounter; F25.9 Schizoaffective disorder, unspecified; X58.XXXA Exposure to other specified factors, initial encounter; Y93.89 Activity, other specified; Y92.89 Other specified places as the place of occurrence of the external cause; Y99.8 Other external cause status
CPT/HCPCS: 36415-UA; 71045-TC; 80053-TC; 80061-TC; 82140-TC; 83036-90; 83735-TC; 83880-TC; 84100-TC; 84484-TC; 85025-TC; 93005; 94760; J1200; J1630; J1815; Z7610

== ENCOUNTER 2017-12-28 11:30 | Inpatient (IN) | payer MEDICARE, MEDICAID ==
[2017-12-28 14:54] VITALS: BP 150/72
[2017-12-28] MEDS ORDERED: Pneumococcal Vaccine 0.5 mL Vial IM ONE (15:35)
[2017-12-28] MEDS ORDERED: Magnesium Hydroxide (MOM) 30 mL UDC PO PRN (15:47)
[2017-12-28] MEDS ORDERED: Maalox 30 mL Cup PO PRN ×2 (15:47→20:45)
[2017-12-28] MEDS ORDERED: Ipratropium Neb 0.5 mg/2.5 mL UD HHN PRN (15:59)
[2017-12-28] MEDS ORDERED: GLUCAGON HCl 1 MG KIT IM PRN (15:59)
[2017-12-28] MEDS ORDERED: Budesonide 0.5 Mg/2 mL Ud HHN PRN (15:59)
[2017-12-28] MEDS ORDERED: Non-Formulary Item 1 EA (Melatonin [Melatonin] 6 MG) PO PRN (15:59)
[2017-12-28] MEDS ORDERED: INSULIN ASPART SLIDING SCALE 100 UNITS/ML UNIT SUBQ SCH (16:00)
[2017-12-28] MEDS: INSULIN ASPART SLIDING SCALE 100 UNITS/ML UNIT SUBQ SCH ×2 (16:59→21:21)
[2017-12-28] MEDS: Lactulose 10 Gm/15 mL 30mL UDC PO SCH (18:03)
[2017-12-28] MEDS: Ferrous Sulfate 325 MG TAB PO SCH (20:26)
--- NOTE | 2017-12-28 23:12 | History & Physical ---
ADMIT DATE: 12/28/2017 HISTORY OF PRESENT ILLNESS: The patient is a 77-year-old female with long of history of diabetes mellitus, hypertension, dementia, degenerative joint disease, admitted to the medical floor with urinary infection and metabolic encephalopathy. The patient stabilized clinically, transferred to the [facility]. For more advanced treatment, the patient admitted under Dr. Matta's service. The patient is a poor historian. PAST MEDICAL HISTORY: Hypertension, diabetes mellitus, degenerative joint disease, dementia and psychosis. PAST SURGICAL HISTORY: No recent surgery. ALLERGIES: CODEINE. MEDICATIONS: Follow admission reconciliation. SOCIAL HISTORY: No smoking, alcohol or drugs. FAMILY HISTORY: Noncontributory. REVIEW OF SYSTEMS: IMMUNOSYSTEM: No history of chronic immune disorder. CARDIOVASCULAR SYSTEM: No coronary artery disease. ENDOCRINE SYSTEM: No diabetes or thyroid problem. GASTROINTESTINAL SYSTEM: No upper or lower gastrointestinal bleed. NEUROLOGICAL SYSTEM: No seizure disorder. SKELETOMUSCULAR SYSTEM: She had degenerative joint disease. PHYSICAL EXAMINATION: GENERAL: She is awake, not coherent. VITAL SIGNS: Temperature 99.7, heart rate 98 and blood pressure 184/85. HEENT: Normocephalic. Pupils equal, reactive to light and accommodation. Sclerae clear. NECK: Supple. Negative for lymphadenopathy, JVD or bruit. CHEST: Entry of air bilaterally normal. No rales, rhonchi or wheezing. HEART: S1 and S2 normal. No murmur or gallop rhythm. ABDOMEN: Soft and bowel sounds positive. EXTREMITIES: No edema. NEUROLOGIC: She is awake, not coherent. No focal motor or sensory deficit. Cranial nerves 2-12 intact. ASSESSMENT: 1. Hypertension. 2. Diabetes mellitus. 3. Degenerative joint disease. 4. Dementia. 5. Psychosis. PLAN: The patient admitted to the hospital under Dr. Matta's service. Medical problem addressed during this hospitalization psychosis. Medical problems addressed at discharge are hypertension, diabetes mellitus. The patient is medically stable for activity. Thank you Dr. Matta for asking me to see your patient. The patient is a full code. JOB# [id number]
[2017-12-29] MEDS: Lactulose 10 Gm/15 mL 30mL UDC PO SCH ×3 (00:25→11:30)
[2017-12-29] MEDS: INSULIN ASPART SLIDING SCALE 100 UNITS/ML UNIT SUBQ SCH ×4 (07:10→21:23)
[2017-12-29] MEDS: Ferrous Sulfate 325 MG TAB PO SCH ×3 (08:48→21:23)
[2017-12-29] MEDS: Potassium Chloride 10 mEq ER Tab PO SCH (08:49)
[2017-12-29] MEDS: Pantoprazole 40 mg EC Tab PO SCH (08:49)
[2017-12-29] MEDS: Multivitamin Tab PO SCH (08:49)
[2017-12-29] MEDS ORDERED: Multivitamin Tab PO SCH (09:00)
--- NOTE | 2017-12-29 21:48 | Internal Medicine Prog Note ---
Internal Medicine Subjective - Subjective Service Date: 12/29/17 Patient seen and examined:: with staff Patient is:: awake, non-verbal, in bed, confused Per staff patient has:: no adverse event Internal Medicine Objective - Results Recent Labs: Laboratory Last Values POC Glucose 170 MG/DL (70 - 105) H 12/29/17 16:57 - Physical Exam Vitals and I&O: Vital Signs Temp 97.8 F 12/29/17 20:00 Pulse 100 12/29/17 21:21 Resp 20 12/29/17 20:00 BP 170/82 12/29/17 21:21 Pulse Ox 96 12/29/17 20:00 Intake & Output 12/29/17 12/29/17 12/30/17 06:59 18:59 06:59 Intake Total 120 860 Balance 120 860 Intake: Oral 120 860 Other: # Voids 3 4 # Bowel Movements 0 4 Stool Characteristics Liquid Active Medications: Current Medications Acetaminophen (Tylenol) 650 mg PO Q4HR PRN PRN Reason: FEVER >100; MILD PAIN Stop: 02/26/18 20:44 Al Hydrox/Mg Hydrox/Simethicone (Maalox) 30 ml PO Q4HR PRN PRN Reason: GI DISTRESS Stop: 02/26/18 20:44 Ascorbic Acid (Vitamin C) 500 mg PO DAILY MARINO Stop: 02/27/18 08:59 Last Admin: 12/29/17 08:48 Dose: 500 mg Aspirin (Ecotrin) 81 mg PO DAILY [facility]INO Stop: 02/27/18 08:59 Last Admin: 12/29/17 08:48 Dose: 81 mg Budesonide (Pulmicort) 0.5 mg HHN BID PRN PRN Reason: SOB/RESP DISTRESS Stop: 02/26/18 15:58 Donepezil HCl (Aricept) 5 mg PO HS MARINO Stop: 02/26/18 20:59 Last Admin: 12/29/17 21:22 Dose: 5 mg Ferrous Sulfate (Iron) 325 mg PO TID MARINO Stop: 02/26/18 20:59 Last Admin: 12/29/17 21:23 Dose: 325 mg Furosemide (Lasix) 40 mg PO BID MARINO Stop: 02/26/18 16:59 Last Admin: 12/29/17 16:43 Dose: 40 mg Glipizide (Glucotrol) 5 mg PO DAILY MARINO Stop: 02/27/18 08:59 Last Admin: 12/29/17 08:49 Dose: 5 mg Glucagon (Glucagen) 1 mg IM PRN PRN PRN Reason: BLOOD SUGAR < 60 Stop: 02/26/18 15:58 Insulin Aspart (Novolog Insulin Sliding Scale) 0 units SUBQ ACHS MARINO; Protocol Stop: 02/26/18 16:29 Last Admin: 12/29/17 21:23 Dose: Not Given Ipratropium [place] (Atrovent Neb 0.5mg/2.5ml) 0.5 mg HHN BID PRN PRN Reason: COPD Stop: 02/26/18 15:58 Lactulose (Cephulac) 20 gm PO Q6HR MARINO Stop: 02/26/18 17:59 Last Admin: 12/29/17 11:30 Dose: Not Given Lorazepam (Ativan) 0.5 mg PO Q4HR PRN; Protocol PRN Reason: Anxiety Stop: 02/26/18 15:57 Magnesium Hydroxide (Milk Of Magnesia) 30 ml PO HS PRN PRN Reason: Constipation Metoprolol Tartrate (Lopressor) 25 mg PO TID [facility] Stop: 02/26/18 20:59 Last Admin: 12/29/17 21:21 Dose: 25 mg Multivitamins/Vitamin C (Theragran) 1 tab PO DAILY [facility] Stop: 02/27/18 08:59 Last Admin: 12/29/17 08:49 Dose: 1 tab Nitroglycerin (Nitrostat) 0.4 mg SL Q5MIN PRN PRN Reason: Chest Pain Stop: 02/26/18 15:58 Pantoprazole Sodium (Protonix) 40 mg PO DAILY [facility] Stop: 02/27/18 08:59 Last Admin: 12/29/17 08:49 Dose: 40 mg Potassium Chloride (Klor-Con) 10 meq PO DAILY [facility] Stop: 02/27/18 08:59 Last Admin: 12/29/17 08:49 Dose: 10 meq Quetiapine Fumarate (Seroquel) 25 mg PO BID [facility]; Protocol Stop: 02/26/18 16:59 Last Admin: 12/29/17 16:43 Dose: 25 mg Quetiapine Fumarate (Seroquel) 100 mg PO HS [facility]; Protocol Stop: 02/26/18 21:44 Last Admin: 12/29/17 21:21 Dose: 100 mg Senna (Senna) 8.6 mg PO HS [facility] Stop: 02/26/18 20:59 Last Admin: 12/29/17 21:21 Dose: 8.6 mg Tramadol HCl (Ultram) 50 mg PO Q4H PRN PRN Reason: Pain (Moderate/Severe) Stop: 02/26/18 15:58 Zolpidem Tartrate (Ambien) 5 mg PO HS PRN PRN Reason: Insomnia Stop: 02/26/18 15:46 Last Admin: 12/28/17 20:26 Dose: 5 mg General: demented HEENT: NC/AT, PERRLA, EOMI, anicteric sclerae, throat clear Neck: Supple, No JVD, No thyromegaly, +2 carotid pulse wo bruit, No LAD, + JVD Lungs: CTAB Cardiovascular: RRR, Normal S1, Normal S2, without murmur Abdomen: soft, non-tender, non-distended Extremities: clear Neurological: no change Internal Medicine Assmt/Plan - Assessment Assessment: 1.HTN. 2.DM. 3.DJD. 4.DEMENTIA. 5.PSYCHOSIS. - Plan Plan: CONTINUE ON CURRENT MEDICATION AND DIET Nutritional Asmnt/Malnutr-PDOC - Dietary Evaluation Malnutrition Findings (Please click <Entered> for more info): Nutritional Asmnt/Malnutrition Start: 12/29/17 14: 02 Text: Status: Complete Freq: Protocol: Document 12/29/17 14:02 SHONPATTI (Rec: 12/29/17 14:17 SVEN [email or web address]) Nutritional Asmnt/Malnutrition Patient General Information Nutritional Screening High Risk Diagnosis psychosis Pertinent Medical Hx/Surgical Hx HTN, DM, DJD, dementia, psychosis Subjective Information Per RN, pt is a poor eater and has refused before. Met pt eating lunch in her room, who appeared to take a long time chewing. Pt was primarily alert to self and did not indicate any preferences. Talked to PROCESS IMPROVEMENT CONSULTANT who states pt is able to chew and is tolerating diet, but pt refused breakfast today. Current Diet Order/ Nutrition Support CCHO 90 gm Pertinent Medications maalox, Vit C, iron, lasix, glucagen, novolog, MOM, theragran, protonix, klor-con, seroquel, senna Pertinent Labs 12/28: POC 136 Nutritional Hx/Data Height 1.65 m Height (Calculated Centimeters) 165.1 Current Weight (lbs) 94.801 kg Weight (Calculated Kilograms) 94.8 Weight (Calculated Grams) 39039.8 [place] Body Weight 125 lb Body Mass Index (BMI) 34.7 Weight Status Obese GI Symptoms GI Symptoms None Last BM none noted Difficult in: None Food Allergies No Skin Integrity/Comment: Per nurse note 12/28: bruises throughout body, skin tear on left forearm, and redness on buttocks; devante 10 Estimated Nutritional Goals BEE in Kcals: Adj wt of IBW Calories/Kcals/Kg 25-30 (based on adj wt 66.4 kg ) Kcals Calculated Protein: Adj wt of IBW Protein g/k.1-1.3 Protein Calculated 73-86 g Fluid: ml (1 ml/kcal) Nutritional Problem 1. Problem Problem Altered nutrition related lab value Etiology hyperglycemia Signs/Symptoms: POC 136, pt on insulin Malnutrition Alert Is there a minimum of two criteria No selected? Query Text:Check all the applicable criteria. A minimum of two criteria are recommended for diagnosis of either severe or non-severe malnutrition. Malnutrition Related to Morbid Obesity Malnutrition related to morbid obesity No Intervention/Recommendation Comments 1. Recommend to modify diet order to CCHO 60 gm for glucose managemtn. Nurse to assist pt with meals as needed . 2. Monitor PO intake, wt, glucose labs and skin integrity. If pt has difficulty of chewing, will consider downgrade diet texture. 3. F/U as moderate risk in 3-5 days, 01/01-01/03; PO check 12/31 Expected Outcomes/Goals Expected Outcomes/Goals 1. PO intake to meet at least 75% of all meals 2. Wt stability, skin integrity to improve, labs to approach WNL Reviewed by Marlin Dorsey RD
--- NOTE | 2017-12-30 03:37 | Psychiatric Evaluation ---
DATE OF SERVICE: 12/29/2017 PSYCHIATRIC INITIAL EVALUATION MENTAL STATUS EXAM AGE: 77. SEX: Female. PHYSICIAN: Dr. Matta. CHIEF COMPLAINT: Agitation and irritability. HISTORY OF PRESENT ILLNESS: The patient is a 77-year-old female who was transferred from Med-Surg unit after she came from [facility]. The patient was placed on a hold for dangers to self and grave disability. Apparently, the patient was agitated in the [facility] and she was not able to follow any of directions and she was extremely irritable and agitated. She also was having trouble following directions and she was not able to care for self and confused. Upon arrival to the hospital, the patient was admitted to the medical floor where she was treated and medically stabilized and then transferred to Geropsych unit. The patient is still agitated and in irritable mood and she is still confused. Uncooperative with the staff and uncooperative with her treatment. The patient also has been confused and has been unable to answer questions coherently. The patient has history of dementia as well as psychosis and the patient was on Seroquel and Aricept. PAST PSYCHIATRIC HISTORY: As mentioned above. PAST MEDICAL HISTORY: The patient has a history of COPD, diverticulosis, and possible hypertension. SOCIAL HISTORY: The patient lives in [facility]. No known alcohol or drug use. No other information known at this time. ALLERGIES: CODEINE. MENTAL STATUS EXAMINATION: The patient appears her stated age. Anxious. Disheveled. Confused. Speaks Cameroonian and that helped from staff with translation. The patient seems to be actively responding to stimuli and mumbling and talking to self. The patient did not answer questions regarding hallucinations or delusions, but actively responding. The patient did not answer questions regarding suicide or homicide. The patient is alert and oriented to time, place, person, and situation. Impaired immediate, recent and remote memories. Poor insight and poor judgment. ASSESSMENT: PRIMARY DIAGNOSIS: Unspecified psychosis. SECONDARY DIAGNOSIS: Dementia, severe, with psychotic features. MEDICAL DIAGNOSES: Chronic obstructive pulmonary disease. Diverticulosis. TREATMENT PLAN: We will monitor the patient's behavior and condition closely. We will start individual as well as milieu psychotherapy. We will also continue the patient on Seroquel and adjust the dose as well as continue Aricept. ESTIMATED LENGTH OF STAY: 5-7 days. THE PATIENT'S STRENGTHS AND WEAKNESSES: The patient's strength is not clear at this time. Weaknesses is ineffective coping and her poor judgment at this time. AFTER DISCHARGE PLAN: The patient will return to [facility] and will continue outpatient treatment. CRITERIA FOR DISCHARGE: The patient will have better impulse control and she will not be psychotic and will stabilize psychotropic medications. JOB# [id number]
[2017-12-30] MEDS: Lactulose 10 Gm/15 mL 30mL UDC PO SCH ×2 (06:30)
[2017-12-30] MEDS: INSULIN ASPART SLIDING SCALE 100 UNITS/ML UNIT SUBQ SCH (06:31)
[2017-12-30] MEDS: Multivitamin Tab PO SCH (08:57)
[2017-12-30] MEDS: Ferrous Sulfate 325 MG TAB PO SCH (08:57)
[2017-12-30] MEDS: Pantoprazole 40 mg EC Tab PO SCH (08:58)
[2017-12-30] MEDS: Potassium Chloride 10 mEq ER Tab PO SCH (08:58)
--- NOTE | 2017-12-30 12:42 | Diagnostic Imaging Report ---
CHEST X-RAY: AP view INDICATION: Intubation COMPARISON: Chest x-ray 06/29/2017 FINDINGS: ET tube is seen with tip 1.2 cm above the [place]. Suboptimal lung volumes are seen with mild congestive changes. No focal consolidation or effusions. Cardiomegaly is noted with atherosclerosis. Prior films IMPRESSION: ET tube with tip 1.2 cm above the [place]lita Suboptimal lung volumes and mild congestive changes. No focal consolidation identified. Cardiomegaly and atherosclerotic vascular disease.
--- NOTE | 2017-12-31 10:49 | Discharge Summary ---
DATE OF DISCHARGE: 12/30/2017 PATIENT'S AGE: 77-year-old. SEX: Female. PHYSICIAN: Michael Matta MD, MPH FINAL DIAGNOSES: PRIMARY DIAGNOSIS: Unspecified psychosis. SECONDARY DIAGNOSIS: Dementia, moderate to severe. MEDICAL DIAGNOSIS: The patient was coded and transferred to ICU. REASON FOR HOSPITALIZATION: The patient was admitted to the hospital because of increased agitation and irritability. The patient also was unable to follow directions. She also was confused. HOSPITAL COURSE: The patient was anxious and she was in irritable mood. The patient was started on Seroquel. The patient also was interacting minimally with others. On the day of discharge and during my rounds, I went to see the patient, but I found that she has blue color and she was difficult to arouse. Staff tried to take vital signs, but staff was not able to get her pulse and code blue was ordered and the patient was intubated and transferred to ICU. PHYSICAL EXAMINATION: The patient was monitored by Dr. Read. Upon admission, the patient had no major medical issues, but on the day of discharge was transferred to ICU. The patient was having a blue color face with difficulty to arouse. AFTER DISCHARGE PLANS: The patient discharged from the hospital to ICU with plan to be followed there. [facility]# [id number]
== END 2017-12-30 11:34 | disposition short-term general hospital (02) | DRG 885 ==
LOC: GERO 11:30 → UNDODISIN 12-30 11:30 → ICU 12-30 11:34 → GERO 12-30 11:34
PROVIDERS: ADMIT Psychiatry & Neurology Psychiatry; ATTEND Psychiatry & Neurology Psychiatry
PROC: 5A1935Z Respiratory Ventilation, Less than 24 Consecutive Hours (ICD-10-PCS; principal; 2017-12-30)
PROC: 0BH17EZ Insertion of Endotracheal Airway into Trachea, Via Natural or Artificial Opening (ICD-10-PCS; 2017-12-30)
PROC: 5A12012 Performance of Cardiac Output, Single, Manual (ICD-10-PCS; 2017-12-30)
DX: F29 Unspecified psychosis not due to a substance or known physiological condition (principal); G93.41 Metabolic encephalopathy; F03.91 Unspecified dementia, unspecified severity, with behavioral disturbance; E11.9 Type 2 diabetes mellitus without complications; I10 Essential (primary) hypertension; M19.90 Unspecified osteoarthritis, unspecified site; J44.9 Chronic obstructive pulmonary disease, unspecified; K57.30 Diverticulosis of large intestine without perforation or abscess without bleeding; F41.9 Anxiety disorder, unspecified; Z88.5 Allergy status to narcotic agent
CPT/HCPCS: 71045-TC; 82948-90; 90732; 94760; J1815; Z7610

== ENCOUNTER 2017-12-30 11:35 | Inpatient (IN) | payer MEDICARE, MEDICAID ==
[2017-12-30] MEDS ORDERED: DOPamine 800 MG/250 ML BAG IV PRN (12:57)
[2017-12-30] MEDS ORDERED: Phenylephrine HCl 50 MG in Sodium Chloride 0.9% 250 ML IV SCH (13:00)
--- NOTE | 2017-12-30 13:21 | Consultation ---
DATE OF CONSULTATION: 12/30/[address] Read. HISTORY AND PHYSICAL: This 77-year-old obese female patient recently admitted to [facility]. The patient was found altered level at this time. Rapid response. Team was called in and the patient was in complete respiration, was resuscitated, intubated, and following this patient was transferred to ICU with Levophed, Chris-Synephrine, and dopamine. OBJECTIVE: VITAL SIGNS: Blood pressure 90 systolic, on dopamine, Levophed and Chris-Synephrine. Pulse 88, respiration on ventilator. HEAD: Normocephalic. No lumps or bumps. EYES: Pupils equal, reactive to light. Fundi show AV nicking, sclerae white, conjunctivae pink. NECK: Carotid 2+. Normal upstroke. JVD flat. Thyroid not palpable. Lymph nodes not palpable. CHEST: Shows increased AP diameter. No kyphosis, scoliosis. LUNGS: Bilateral rales. Decreased breath sounds both the bases. HEART: PMI sixth intercostal space with lateral to midclavicular line. S1, S2, S3, S4, soft systolic murmur. ABDOMEN: Soft. Liver, spleen not palpable. No organomegaly. Bowel sounds active. NEUROLOGIC: No focal neurological deficit. EXTREMITIES: Peripheral pulses 2+. No pedal edema. CLINICAL IMPRESSION: 1. Cardiopulmonary arrest, cardiogenic shock, hypotension. 2. Coronary artery disease, stable angina. 3. Diabetes mellitus type 2, insulin-dependent. 4. Hypertension. 5. Cirrhosis of liver. 6. Chronic obstructive pulmonary disease. 7. Schizophrenia. 8. Urinary tract infection. PLAN: At the present time, the patient to continue on vasopressor, vent management. We will have echocardiogram and monitor the patient. JOB# [id number]
[2017-12-30 13:22] LABS: pH 6.92 (7.35-7.45)
[2017-12-30] MEDS ORDERED: DOPamine 400 MG/250 ML BAG IV ONE (13:38)
[2017-12-30] MEDS ORDERED: DOPamine 400 MG/250 ML BAG IV PRN (13:41)
[2017-12-30 13:43] LABS: MEAN CORPUSCULAR HEMOGLOBIN 31.6 pg (27.0-31.0); MEAN PLATELET VOLUME 8.5 fl; PLATELET COUNT 141 Th/cmm (150-400); RED BLOOD COUNT 2.51 Mil/cmm (3.80-5.20); RED CELL DISTRIBUTION WIDTH 17.7 % (11.5-20.0); WHITE BLOOD COUNT 14.8 Th/cmm (4.8-10.8)
[2017-12-30] MEDS ORDERED: Pantoprazole 80 MG in Sodium Chloride 0.9% 100 ML IV SCH (13:45)
[2017-12-30 13:47] LABS: HEMOGLOBIN 7.9 gm/dL (12-16)
[2017-12-30 13:48] LABS: HEMATOCRIT 29.3 % (41.0-60)
[2017-12-30] MEDS ORDERED: Sodium Chloride 0.9% 1,000 ML IV ONE (14:06)
[2017-12-30 14:22] LABS: NEUTROPHILS 61 % (40-80)
[2017-12-30 14:25] LABS: BAND NEUTROPHILE 8 % (0-10); BASOPHIL 1 % (0-3); LYMPHOCYTE 21 % (20-50); METAMYELOCYTE 4 % (0-0); MONOCYTE 3 % (2-10); MYELOCYTE 2 %
[2017-12-30 14:26] LABS: PLATELET ESTIMATE DECREASED PLATELETS (NORMAL)
--- NOTE | 2017-12-30 15:14 | History & Physical ---
ADMIT DATE: 12/30/2017 CHIEF COMPLAINT: Cardiopulmonary arrest. HISTORY OF PRESENT ILLNESS: The patient is a 77-year-old female with long history of diabetes mellitus, hypertension, dementia, psychosis, resident at Geropsych Department at [facility] and was found very lethargic. The patient went to cardiopulmonary arrest, resuscitated by the Emergency Room physician, admitted to the ICU after she was intubated. Dr. Umang Stauffer and Dr. Kaur consulted on the case. The patient already was seen by Dr. Umang Stauffer and started on Chris-Synephrine, Levophed. The patient is not coherent, on the ventilator. PAST MEDICAL HISTORY: Significant for hypertension, diabetes mellitus, dementia, psychosis. PAST SURGICAL HISTORY: No recent surgery. ALLERGIES: CODEINE. SOCIAL HISTORY: No alcohol. FAMILY HISTORY: Noncontributory. REVIEW OF SYSTEMS: RENAL SYSTEM: No history of chronic renal disorder. CARDIOVASCULAR SYSTEM: She has history of hypertension. ENDOCRINE SYSTEM: She has history of diabetes mellitus. GASTROINTESTINAL SYSTEM: No upper or lower gastrointestinal bleed. NEUROLOGICAL: She has history of dementia. PHYSICAL EXAMINATION: GENERAL: She is on the ventilator, not coherent. VITAL SIGNS: Temperature is 97, heart rate 76, blood pressure 44/10. HEENT: Pupils reacting slow to light and accommodation. Sclerae clear. NECK: Supple. Negative for lymphadenopathy, JVD or bruit. CHEST: Entry of air bilateral, mild diminished. HEART: S1, S2 normal. ABDOMEN: Soft, bowel sounds positive. EXTREMITIES: No edema. NEUROLOGIC: Not follow command. ASSESSMENT: 1. Cardiopulmonary arrest, status post resuscitation. 2. Acute respiratory failure. 3. Diabetes mellitus. 4. History of hypertension. PLAN: The patient admitted in the ICU under Dr. Read's service, started on IV fluid, IV Levophed, IV Chris-Synephrine. PICC line ordered for the patient. The patient started on D5 NS IV at 150 mL per hour. The patient is a full code. Case discussed with the daughter at bedside. JOB# [id number]
--- NOTE | 2017-12-31 02:06 | Consultation ---
DATE OF CONSULTATION: 12/30/2017 CRITICAL CARE NOTE REFERRING PHYSICIAN: Semaj Read MD Thank you very much kindly for this consultation. HISTORY OF PRESENT ILLNESS: This was a 77-year-old female who apparently was in [facility], was found altered, unresponsive, code blue was started, the patient was resuscitated, brought in the ICU. Initial blood gas showed severe metabolic acidosis, pH only of 7 and the patient was on pressors and bicarbonate. The patient suffered four other arrests in the meantime. PAST MEDICAL HISTORY: History of hypertension, chronic kidney disease, diabetes, and CHF. SOCIAL HISTORY: Remote history of smoking for many years, quit over 15 years ago. The patient also has history of dementia. REVIEW OF SYSTEMS: Unable to obtain because of the patient's condition. PHYSICAL EXAMINATION: GENERAL: The patient was intubated, on the event, unresponsive. VITAL SIGNS: Temperature 98.5, pulse was 74, respirations were 20, blood pressure was 98/55, and saturation 100%. HEENT: Head was atraumatic and normocephalic. Eyes; pupils were dilated, nonreactive to light and accommodation. Ears, nose, and throat normal. NECK: Supple. No JVD. CHEST: There were rhonchi bilaterally. HEART: Regular. ABDOMEN: Soft. EXTREMITIES: No edema. LABORATORY DATA AND DIAGNOSTIC STUDIES: WBC was 14.8, hemoglobin 7.9, hematocrit 21.3, platelets 141. Last blood gas; pH 7.69, pCO2 of 50, pO2 of 100, bicarb of 7.5. The chest x-ray showed ET tube in place, some mild congestive changes. IMPRESSION: 1. Respiratory failure. 2. Congestive heart failure. 3. Circulatory collapse. 4. Status post arrest. 5. Urinary tract infection. 6. Possible sepsis. 7. Severe metabolic acidosis. PLAN: 1. Ventilator support. 2. IV fluids. 3. Bicarbonate. 4. Supportive care. Discussed with the family, patient's prognosis was very dismal, less likely she would make it. After discussing with the family the above, had a full arrest, required resuscitation efforts which were given for 15 minutes. The patient had no pulse or rhythm throughout the resuscitation efforts and did not survive the resuscitation efforts, and the above information was related to the family on the bedside. JOB# [id number]
== END 2017-12-30 17:05 | disposition expired | DRG 871 ==
LOC: ICU 11:35
PROVIDERS: ADMIT Family Medicine; ATTEND Family Medicine
PROC: 5A1935Z Respiratory Ventilation, Less than 24 Consecutive Hours (ICD-10-PCS; principal; 2017-12-30)
DX: A41.9 Sepsis, unspecified organism (principal); J96.00 Acute respiratory failure, unspecified whether with hypoxia or hypercapnia; N39.0 Urinary tract infection, site not specified; I13.0 Hypertensive heart and chronic kidney disease with heart failure and stage 1 through stage 4 chronic kidney disease, or unspecified chronic kidney disease; K74.60 Unspecified cirrhosis of liver; J44.9 Chronic obstructive pulmonary disease, unspecified; F20.9 Schizophrenia, unspecified; I25.119 Atherosclerotic heart disease of native coronary artery with unspecified angina pectoris; R57.0 Cardiogenic shock; F03.90 Unspecified dementia, unspecified severity, without behavioral disturbance, psychotic disturbance, mood disturbance, and anxiety; F29 Unspecified psychosis not due to a substance or known physiological condition; N18.9 Chronic kidney disease, unspecified; E11.22 Type 2 diabetes mellitus with diabetic chronic kidney disease; I50.9 Heart failure, unspecified; Z87.891 Personal history of nicotine dependence
CPT/HCPCS: 36415-UA; 36600-90; 82803-TC; 82948-90; 85007-TC; 85025-TC; 86850-TC; 86900-TC; 86901-TC; 86922-TC; 87070; 90799; 92950; 94002; C9113; J0171; J0461; J1265; J2370; J7030; J7042; X6452; Z7610